=== PATIENT | female | born 1990 | race Hispanic/Latino ===

== ENCOUNTER → 2019-02-20 | Day surgery (SDC) | payer BC ==
[2019-02-18 11:01] LABS: BASOPHILS % 0.7 % (0.0-1.0); EOSINOPHILS # (AUTO) 0.1 (0.0-0.4); EOSINOPHILS % 0.8 % (0.0-6.0); HEMATOCRIT 40.9 % (34.2-44.1); HEMOGLOBIN 14.2 g/dL (12.0-16.0); LYMPHOCYTES # (AUTO) 1.8 (1.0-3.2); LYMPHOCYTES % 30.8 % (18.0-39.1); MEAN CORPUSCULAR HEMOGLOBIN 30.7 pg (28-32); MEAN CORPUSCULAR HGB CONC 34.7 g/dL (31-35); MEAN CORPUSCULAR VOLUME 88.3 fL (81-99); MONOCYTES # (AUTO) 0.6 (0.2-0.8); MONOCYTES % 9.4 % (4.4-11.3); NEUTROPHILS # (AUTO) 3.4 (2.1-6.9); PLATELET COUNT 232 x10e3/uL (140-360); RED BLOOD COUNT 4.63 x10e6/uL (3.6-5.1); RED CELL DISTRIBUTION WIDTH 12.1 % (11.7-14.4)
[2019-02-18 11:17] LABS: ANION GAP 12.7 mmol/L (8-16); BLOOD UREA NITROGEN 10 mg/dL (7-26); BUN/CREATININE RATIO 15 (6-25); CALCIUM 10.1 mg/dL (8.4-10.2); CARBON DIOXIDE 30 mmol/L (22-29); CHLORIDE 99 mmol/L (98-107); CREATININE, SERUM 0.65 mg/dL (0.57-1.11); EST GLOMERULAR FILTRATION RATE > 60 ML/MIN (60-); GLUCOSE 76 mg/dL (74-118); POTASSIUM 3.7 mmol/L (3.5-5.1); SODIUM 138 mmol/L (136-145)
[~2019-02-20] MED LIST: FENTANYL CITRATE/PF 100MCG/2 ML INJ ONE; LIDOCAINE HCL 2% LOCAL INJ 5 ML SDV VIAL INJ ONE; MIDAZOLAM HCL 2 MG/2 ML VIAL ONE; PROPOFOL IV EMULSION 10 MG/ML 20 ML VIAL ONE
--- OUTSIDE RECORDS SUMMARY | 2019-02-20 08:15 | XMS REPORT ---
Author [facility] Address Unknown Phone Unavailable Care Team Providers Care Data Analytics Chief Scientist Name Role Phone Unavailable Unavailable Payers Payer Name Policy Type Policy Number Effective Date Expiration Date Problems This patient has no known problems. Allergies, Adverse Reactions, Alerts Allergy Name Allergy Type Status Severity Reaction(s) Onset Date Inactive Date Treating Clinician Comments No Known Allergies DA Active U 2017-02-07 00:00:00 Medications This patient has no known medications.
--- OUTSIDE RECORDS SUMMARY | 2019-02-20 08:15 | XMS REPORT | Summary of Care ---
Author Author REDD JARQUIN M.D. 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 Active Allergies and Adverse Reactions Name Dates Details No Known Drug Allergies (Allergy) Status: Active Procedures Procedure Dates Details MRA and MRV Brain wo contrast 28620 Date: 17-May-2017 History of gallbladder surgery Completed History of section Completed Immunization Name Dates Details Immunizations not documented Family History Name Dates Details Family history of malignant neoplasm (V16.9, Z80.9) Comments: Family History Status: Active Social History Name Dates Details - Status: Name Dates Details Never smoker Vital Signs Date Test Result Details [id number] BP Systolic 97 mm[Hg] Status: BP Diastolic 86 mm[Hg] Status: Height 64 in Status: Weight 145 lb Status: Body Mass Index Calculated 24.89 kg/m2 Status: Body Surface Area Calculated 1.71 m2 Status: Heart Rate 76 /min Status: Results Date Description Value Details [id number] MRV Brain wo contrast 07679 Brain wo contrast MRV SEE NOTES Comments: EXAM: MR VENOGRAM BRAIN WITHOUT CONTRASTDATE: 06/05/2017 7:15 PM CSTINDICATION: H93.293 Other abnormal auditory perceptions, bilateral.Headaches.COMPARISON: None Available.TECHNIQUE: MRV images of the brain were obtained utilizing a hjhm-ya-rxgvciwbuiwxuxy without intravenous contrast. Maximal intensity projection (MIP)computer- reformatted images are submitted for interpretation in multipleobliquities along with the source images.FINDINGS:Appropriate flow-related signal is present in the deep cerebral veins and majordural venous sinuses. No incidental findings were noted.IMPRESSION:No evidence for dural sinus thrombosis.SL: [id number] by: William Taylor MDDictated Date/time: 06/05/17 20:31Electronically Signed by: William Taylor MD 06/05/1720:33FINAL REPORT [id number] MRA Brain without contrast 69431 Brain without contrast MRA SEE NOTES Comments: EXAM: MRA BRAIN WITHOUT CONTRASTDATE: 06/05/2017 7:16 PM CSTINDICATION: H93.293 Other abnormal auditory perceptions, bilateral.Headaches.COMPARISON: None Available.TECHNIQUE: Three-dimensional time of flight brain MR angiography ofintracranial vessels is performed, and maximum intensity projection reformattedimages are presented in multiple three- dimensional rotational projections.FINDINGS:The petrous, cavernous, and supraclinoid segments of the internal carotidarteries are unremarkable.No branch occlusion, arteritis, vascular malformation or aneurysm isidentified.The anterior and middle cerebral arteries demonstrate a normal course andcaliber. The anterior communicating artery complex is within normal limits.The vertebral and basilar arteries demonstrate a normal course and caliber. Theposterior cerebral arteries demonstrate a normal course and caliber.IMPRESSION:Unremarkable MRA of the [place].SL: [id number] by: William Taylor MDDictated Date/time: 06/05/17 20:33Electronically Signed by: William Taylor MD 06/05/1720:36FINAL REPORT Plan of Care Name Dates Details Planned Observations Planned Goals not documented Planned Encounters Appointment; REDD JARQUIN M.D. On: 17-Jun-2017 14:00 Instructions Name Dates Details Instructions not documented Encounters Appointment; JIM HANSEN Encounter Diagnosis: Problem not documented On: 14-May-2017 15:00 Appointment; REDD JARQUIN M.D. Encounter Diagnosis: Problem not documented On: 14-May-2017 15:30
[2019-02-20 12:43] VITALS: BP 98/68
== END | disposition home or self-care (01) ==
LOC: OR 08:13
PROVIDERS: ATTEND Surgery
DX: K31.7 Polyp of stomach and duodenum (principal); K25.7 Chronic gastric ulcer without hemorrhage or perforation; R10.13 Epigastric pain; Z01.812 Encounter for preprocedural laboratory examination; K21.0 Gastro-esophageal reflux disease with esophagitis
CPT/HCPCS: 36415; 43235; 43251; 80048; 81025; 85025; 88305; 88312; J2001; J2250; J3010